=== PATIENT | male | born 1945 | race Caucasian/White ===

== ENCOUNTER 2018-05-25 14:33 | Emergency (ER) | payer MEDICARE, OTHER ==
[~2018-05-25] VITALS: Ht 177.8 cm; Wt 78.9 kg
--- NOTE | 2018-05-25 15:52 | Emergency Room Report ---
History of Present Illness General Chief Complaint: General Complaint Source: Patient (Cherrie Wall) Present Illness HPI 72-year-old male presents to the emergency department complaining of progressive swelling to a lump under his left arm 2 weeks. Patient reports he is always had palpable mass in that area however never had pain and swelling. Patient denies erythema, increased temperature palpation, recent trauma or fall. Patient denies fevers, chills, night sweats or rashes. He denies recent illness, or history of immunocompromise. (Cherrie Wall) Allergies: Coded Allergies: No Known Allergies (Unverified , 05/25/18) Patient History Past Medical History: see triage record Past Surgical History: none Pertinent Family History: none Reviewed Nursing Documentation: PMH: Agreed; PSxH: Agreed (Cherrie Wall) Nursing Documentation-PMH Hx Hypertension: Yes (Cherrie Wall) Review of Systems All Other Systems: negative except mentioned in HPI (Cherrie Wall) Physical Exam Vital Signs Date Time Temp Pulse Resp B/P (MAP) Pulse Ox O2 Delivery O2 Flow Rate FiO2 05/25/18 14:56 97.9 70 18 157/95 96 Room Air 97.9 Sp02 EP Interpretation: reviewed, normal General Appearance: no apparent distress, alert, GCS 15, non-toxic Head: normocephalic, atraumatic ENT: hearing grossly normal - hard of hearing, normal voice Neck: full range of motion Respiratory: chest non-tender, lungs clear, normal breath sounds, speaking full sentences Cardiovascular #1: regular rate, rhythm, no edema, normal capillary refill Musculoskeletal: back normal, gait/station normal, normal range of motion, swelling - palpable nodule in the left axilla, no bony ttp. Neurologic: alert, oriented x3, responsive, motor strength/tone normal, sensory intact, speech normal, grossly normal Psychiatric: judgement/insight normal Skin: normal color, no rash, warm/dry, well hydrated, other - well circumscribed mobile fluid nodule in the left axilla, 3cm in size.No neurovascular compromise, no evidence of infection or lesions no rashes or LAD Lymphatic: no adenopathy (Cherrie Wall) Medical Decision Making PA Attestation Dr. chacon is my supervising Physician whom patient management has been discussed with. (Cherrie Wall) Medicare Attestation The history of [place] has been reviewed and management options for him have been examined and discussed by Ronald Wall. I have personally examined and interviewed the patient. (Ronald Wall MD) Diagnostic Impression: Primary Impression: Cyst of soft tissue ER Course 72-year-old male presents to the emergency department complaining of progressive swelling to a lump under his left arm 2 weeks. Patient reports he is always had palpable mass in that area however never had pain and swelling. Patient denies erythema, increased temperature palpation, recent trauma or fall. Patient denies fevers, chills, night sweats or rashes. He denies recent illness, or history of immunocompromise. Ddx considered but are not limited to Fracture, dislocation, contusion, abscess , Sprain/Strain/Spasm, cyst, LAD Vital signs: are WNL, pt. is afebrile H&PE are most consistent with well circumscribed mobile fluid nodule in the left axilla, 3cm in size.No neurovascular compromise, no evidence of infection or lesions no rashes or LAD - Mass is freely mobile nodule that is approximately 3cm in size. ORDERS: -none required at this time dx is clinical ED INTERVENTIONS: - none required at this time d/w pt. conservative treatment, and to follow up with a primary care provider. pt given a list of primary care clinics for follow up. d/w pt. to return to the ED with worsening or new symptoms. DISCHARGE: At this time pt. is stable for d/c to home. Will provide printed patient care instructions, and any necessary prescriptions. Care plan and follow up instructions have been discussed with the patient prior to discharge. (Cherrie Wall) Last Vital Signs Date Time Temp Pulse Resp B/P (MAP) Pulse Ox O2 Delivery O2 Flow Rate FiO2 05/25/18 14:56 97.9 70 18 157/95 96 Room Air 97.9 (Cherrie Wall) Disposition: HOME, SELF-CARE Condition: Stable Scripts Ibuprofen* (MOTRIN*) 600 Mg Tablet 600 MG ORAL THREE TIMES A DAY, #20 TAB 0 Refills Prov: Cherrie Wall 05/25/18 Patient Instructions: [place] Additional Instructions: Take medications as directed. Follow up with a Primary Care Provider in 3-5 days, even if your symptoms have resolved. --Please review list of primary care clinics, if you do not already have a primary care provider Return sooner to ED if new symptoms occur, or current symptoms become worse. - Please note that this Emergency Department Report was dictated using [employer] control technician technology software, occasionally this can lead to erroneous entry secondary to interpretation by the dictation equipment. Cherrie Wall May 25, 2018 15:52 Ronald Wall MD May 26, 2018 13:42
[2018-05-25] MEDS ORDERED: IBUPROFEN600 MG ORAL (15:57)
[2018-05-25 16:47] VITALS: BP 150/95
[2018-05-25 16:49] VITALS: BP 150/95
== END 2018-05-25 16:50 | disposition home or self-care (01) ==
LOC: EMR 16:00
DX: L72.0 Epidermal cyst (principal); I10 Essential (primary) hypertension
CPT/HCPCS: 99283